=== PATIENT | female | born 1990 | race Caucasian/White ===

== ENCOUNTER 2016-10-08 04:35 | Inpatient (IN) | payer MEDICAID ==
[2016-10-08] MEDS ORDERED: OXYTOCIN 20 UNITS in RINGERS SOLUTION,LACTATED 1,000 ML IV ONE (05:13)
[2016-10-08] MEDS ORDERED: RINGERS SOLUTION,LACTATED 1,000 ML IV PRN (05:13)
[2016-10-08] MEDS ORDERED: ceFAZolin SODIUM 2 GM in DEXTROSE 5 % IN WATER 100 ML IV ONE ×2 (05:13)
[2016-10-08] MEDS: RINGERS SOLUTION,LACTATED 1,000 ML IV PRN ×3 (06:27→09:50)
[2016-10-08] MEDS ORDERED: ceFAZolin SODIUM 2 GM in DEXTROSE 5 % IN WATER 50 ML IV PRN ×2 (07:12)
--- NOTE | 2016-10-08 08:06 | OR ---
Operative Report - Dictated Report Narrative: Operative report: 10/08/2016 Preoperative diagnosis: Prior x2, 39.2 wks Postoperative diagnosis: Same Procedure: Repeat low-transverse section Surgeon: Maddy Herman D.O. Sales Clerk: OR staff Anesthesia: spinal IV fluids: 1750 [place] Urine output: 100 Milliliters EBL: 400 [place] Findings: nl appearing uterus, tubes, ovaries, no adhesions, female, cephalic, Drains: Nunn catheter to gravity Pathology: none Complications: None Condition: Stable The patient was taken to the operating room with IV fluids running and Nunn catheter in place. She was placed in the dorsal supine position with a leftward tilt. She was prepped and draped in the normal sterile fashion. A Pfannenstiel skin incision was made with the scalpel approximately 2 cm above the pubic symphysis along the prior incision. The subcutaneous tissue was dissected down to the fascia. The fascia was incised in the midline and extended laterally. The superior aspect of the fascia was grasped with Brooke clamps and the rectus muscles were dissected off the fascia using Bradford scissors and blunt dissection. In a similar fashion, the inferior aspect of the fascia was grasped and the rectus muscles dissected off. The peritoneum was then entered and extended with good visualization of the bowel and bladder. The uterine incision was made in a low-transverse fashion using the scalpel. It was extended laterally in a blunt manner. The infant was found to be cephalic. The infant was then delivered atraumatically. The cord was clamped and cut. The infant was handed off to the waiting ruby engineer. Cord blood was then collected. The placenta was then delivered spontaneously. The uterus was cleared of all clots and debris. Uterine incision was reapproximated using 0 Vicryl in a running locked fashion. A second layer of 0 Vicryl was used to imbricate the uterine incision. Hemostasis was obtained. The peritoneum was then reapproximated using 3-0 Monocryl. The rectus muscles were inspected, cautery was used to obtain hemostasis. The fascia was then reapproximated with 0 Vicryl. The subcutaneous tissue was then irrigated. Bovie cautery was used to obtain hemostasis. The subcutaneous tissue was then reapproximated using 3-0 Monocryl. The skin was closed in a subcuticular fashion using 4-0 Monocryl. The incision was found to be hemostatic. Benzoin and Steri-Strips were then applied. Telfa and ABDs bandage was then placed. The patient tolerated the procedure well. Sponge, lap, needle, and instrument counts were correct throughout the entire procedure. The patient was taken to the recovery room in stable condition.
[2016-10-08 08:56] LABS: Cocaine Ur Negative (NEGATIVE); Urine Barbiturate Negative (NEGATIVE); Urine Benzodiazepines Negative (NEGATIVE); Urine Opiates Negative (NEGATIVE); Urine PCP Negative (NEGATIVE); Urine THC Negative (NEGATIVE)
[2016-10-08] MEDS ORDERED: ONDANSETRON HCL/PF 2 MG/ML VIAL IV PRN ×2 (09:29→09:30)
[2016-10-08] MEDS ORDERED: diphenhydrAMINE HCL 50 MG/ML VIAL IV PRN (09:29)
[2016-10-08] MEDS ORDERED: NALOXONE HCL 1 MG/1 ML SYRG IV PRN ×2 (09:29)
[2016-10-08] MEDS ORDERED: SENNOSIDES 8.6 MG TABLET PO PRN (09:30)
[2016-10-08] MEDS ORDERED: BISACODYL 10 MG SUPP.RECT RC PRN (09:30)
[2016-10-08] MEDS ORDERED: oxyCODONE HCL/ACETAMINOPHEN 1 TAB TABLET PO PRN (09:30)
[2016-10-08] MEDS ORDERED: SIMETHICONE 80 MG TAB.CHEW PO PRN (09:30)
[2016-10-08] MEDS ORDERED: KETOROLAC TROMETHAMINE 30 MG/ML VIAL IV PRN (09:30)
[2016-10-08] MEDS ORDERED: RINGERS SOLUTION,LACTATED 1,000 ML IV ONE (09:35)
[2016-10-08] MEDS ORDERED: FLUCONAZOLE 150 MG TABLET PO ONE (10:30)
[2016-10-08] MEDS: NYSTATIN 15 APPL BTL TP SCH ×2 (11:08→20:11)
[2016-10-08] MEDS: oxyCODONE HCL/ACETAMINOPHEN 1 TAB TABLET PO PRN ×2 (11:50→16:00)
[2016-10-08] MEDS: IBUPROFEN 800 MG TABLET PO PRN ×2 (11:51→20:06)
[2016-10-08] MEDS ORDERED: RHO(D) IMMUNE GLOBULIN 300 MCG DISP.SYRIN IM ONE (15:45)
[2016-10-08] MEDS: ENOXAPARIN SODIUM 40 MG/0.4 ML SYRG SC SCH (16:00)
[2016-10-08] MEDS: DOCUSATE SODIUM 100 MG CAPSULE PO SCH (20:11)
[2016-10-09] MEDS: IBUPROFEN 800 MG TABLET PO PRN ×3 (03:34→15:42)
[2016-10-09] MEDS: oxyCODONE HCL/ACETAMINOPHEN 1 TAB TABLET PO PRN ×4 (03:35→18:46)
--- NOTE | 2016-10-09 08:54 | PN ---
Progess Note - Interim Narrative: 10/09/16 08:53 Subjective: Patient is doing well, ambulating, voiding, tolerating by mouth. Minimal lochia. Pain controlled with medication. Objective: Vital signs stable General: no acute distress Abdomen: Soft, nondistended, diffusely tender, fundus firm Skin: Incision is clean, dry and intact Extremities: Minimal edema, nontender Assessment and plan: Postoperative day 1 Feeding: Bottle Pain: Controlled with by mouth medication control: Mirena, ParaGard Routine postoperative care.
[2016-10-09] MEDS: DOCUSATE SODIUM 100 MG CAPSULE PO SCH ×2 (09:41→20:58)
[2016-10-09] MEDS: NYSTATIN 15 APPL BTL TP SCH (09:42)
--- NOTE | 2016-10-09 12:49 | PN ---
Subjective - Date and Time Seen Date: 10/09/16 Time: 12:48 Subjective Narrative: Patient denies complications related to Duramorph spinal and bilateral ultrasound-guided tap blocks. Patient denies any discomfort presently and pain appears to be well-controlled. Objective - Review of Systems Generalized/Overall Review: Reports: No Symptoms Reported - Vitals Vitals: Last Vital Signs Temp 36.7 C 10/09/16 11:37 Pulse 86 10/09/16 11:37 Resp 16 10/09/16 11:37 BP 115/68 10/09/16 11:37 Pulse Ox 95 10/09/16 11:37 - Exam Constitutional: Present: Alert, Oriented x3, Cooperative, No distress Extremity: Present: normal range of motion Cauti Physician Documentation - Urinary Catheter Management Uretheral (Nunn) Date of Insertion: 10/08/16 Time of Insertion: 08:02 Assessment/Plan Plan Narrative: Continue current pain medications as prescribed.
[2016-10-09] MEDS: ENOXAPARIN SODIUM 40 MG/0.4 ML SYRG SC SCH (15:42)
[2016-10-10] MEDS: oxyCODONE HCL/ACETAMINOPHEN 1 TAB TABLET PO PRN ×5 (03:52→18:34)
[2016-10-10] MEDS: IBUPROFEN 800 MG TABLET PO PRN ×3 (03:52→18:34)
--- NOTE | 2016-10-10 08:50 | PN ---
Progess Note - Interim Narrative: 10/10/16 08:49 Subjective: Patient is doing well, ambulating, voiding, tolerating by mouth. Minimal lochia. Pain controlled with medication. Objective: Vital signs stable General: no acute distress Abdomen: Soft, nondistended, diffusely tender, fundus firm Skin: Incision is clean, dry and intact Extremities: Minimal edema, nontender Assessment and plan: Postoperative day 2 Feeding: Bottle Pain: Controlled with by mouth medication Routine postoperative care.
[2016-10-10] MEDS: NYSTATIN 15 APPL BTL TP SCH ×3 (09:00→23:12)
[2016-10-10] MEDS: DOCUSATE SODIUM 100 MG CAPSULE PO SCH ×2 (09:03→23:12)
[2016-10-10] MEDS: ENOXAPARIN SODIUM 40 MG/0.4 ML SYRG SC SCH (15:26)
[2016-10-11] MEDS: oxyCODONE HCL/ACETAMINOPHEN 1 TAB TABLET PO PRN ×2 (02:30→08:45)
[2016-10-11] MEDS: IBUPROFEN 800 MG TABLET PO PRN (02:30)
[2016-10-11 07:39] VITALS: BP 127/66
[2016-10-11] MEDS: DOCUSATE SODIUM 100 MG CAPSULE PO SCH (08:42)
[2016-10-11] MEDS: NYSTATIN 15 APPL BTL TP SCH (08:44)
--- NOTE | 2016-10-11 08:47 | PN ---
Subjective - Date and Time Seen Date: 10/11/16 Time: 08:47 Objective - Vitals Vitals: Last Vital Signs Temp 36.3 C L 10/11/16 07:30 Pulse 60 10/11/16 07:30 Resp 16 10/11/16 07:30 BP 127/66 10/11/16 07:30 Pulse Ox 96 10/11/16 07:30 Patient denies complaints. Ambulating without difficulty. Tolerating regular diet. Pain well controlled. Lochia wnl. Abdomen - soft, appropriately tender Incision - clean, dry, intact Uterus - firm, at umbilicus -3 No calf tenderness Impression: Post op day #3 s/p repeat section. Plan: Routine discharge instructions Cauti Physician Documentation - Urinary Catheter Management Uretheral (Nunn) Date of Insertion: 10/08/16 Time of Insertion: 08:02
== END 2016-10-11 11:55 | disposition home or self-care (01) | DRG 766 ==
LOC: MS 04:35
PROVIDERS: ADMIT Obstetrics & Gynecology Gynecologic Oncology; ATTEND Obstetrics & Gynecology Gynecologic Oncology
PROC: 4A1HXCZ Monitoring of Products of Conception, Cardiac Rate, External Approach (ICD-10-PCS; 2016-10-08)
PROC: 10D00Z1 Extraction of Products of Conception, Low, Open Approach (ICD-10-PCS; principal; 2016-10-08 08:00)
DX: O99.824 Streptococcus B carrier state complicating childbirth (principal); O34.211 Maternal care for low transverse scar from previous cesarean delivery; O75.82 Onset (spontaneous) of labor after 37 completed weeks of gestation but before 39 completed weeks gestation, with delivery by (planned) cesarean section; Z3A.39 39 weeks gestation of pregnancy; Z37.0 Single live birth
CPT/HCPCS: 59025; 59510; 85460; G0479; J2790